=== PATIENT | female | born 1980 | race Caucasian/White ===

== ENCOUNTER 2020-05-02 11:42 | Emergency (ER) | payer OTHER ==
[~2020-05-02] VITALS: Ht 170.2 cm; Wt 54.4 kg
[~2020-05-02 11:42] MED LIST: CELEXA20 MG ORAL; IBUPROFEN600 MG ORAL
[2020-05-02] MEDS ORDERED: Tetanus/Diptheria/Pertussis IM ONE (12:00)
[2020-05-02] MEDS ORDERED: Acetaminophen 500mg (ES) tab ORAL ONE (12:00)
--- NOTE | 2020-05-02 12:00 | NUR ---
ED Nurse Note: Pt ambulated to ED from home due to laceration on L side of the head. Per pt she hit accidentally hit her head hard on the edge of a cabinet. Noted active bleeding (pressure gauze applied). denies LOC or dizziness. Pt is AOx4, calm and cooperative to care, VSS, on RA, afebrile on triage.
[2020-05-02 12:05] VITALS: BP 118/77
--- NOTE | 2020-05-02 13:00 | NUR ---
ED Nurse Note: Affected site wiped and gently cleaned by RN. non adhesive pad and kerlix wrapped on pt's forehead.
[2020-05-02] MEDS ORDERED: TYLENOL EXTRA500 MG ORAL (13:02)
[2020-05-02 13:15] VITALS: BP 120/78
--- NOTE | 2020-05-02 13:15 | NUR ---
ER DISCHARGE NOTE: Patient is cleared to be discharged per ERMD, pt is aox4, on room air, with stable vital signs. pt was given dc and prescription instructions, pt was able to verbalize understanding, pt id band removed. pt is able to ambulate with steady gait. pt took all belongings.
--- NOTE | 2020-05-03 08:04 | Emergency Room Report ---
History of Present Illness General Chief Complaint: Head Injury Source: Patient Present Illness HPI 39-year-old female presents the ED with laceration to scalp. States that today she hit her head against a wooden cabinet. There is a cut to her scalp. Bleeding noted. Pain is a 4 out of 10, dull, nonradiating. Denies LOC. Denies photophobia or blurry vision. Denies neck pain. No other aggravating relieving factors. Denies any other associated symptoms Allergies: Coded Allergies: No Known Allergies (Unverified , 03/04/18) COVID-19 Screening Contact w/high risk pt: No Experienced COVID-19 symptoms?: No COVID-19 Testing performed [employer]: No Patient History Past Medical History: none Past Surgical History: none Pertinent Family History: none Social History: Denies: smoking, alcohol use, drug use Now: No Immunizations: UTD Reviewed Nursing Documentation: PMH: Agreed; PSxH: Agreed Nursing Documentation-PMH Past Medical History: No Stated History Review of Systems All Other Systems: negative except mentioned in HPI Physical Exam Vital Signs Date Time Temp Pulse Resp B/P (MAP) Pulse Ox O2 Delivery O2 Flow Rate FiO2 05/02/20 11:49 98.8 92 20 118/77 (91) 94 Room Air Sp02 EP Interpretation: reviewed, normal General Appearance: no apparent distress, alert, GCS 15, non-toxic Head: normocephalic, other - 2 cm laceration to left temporal scalp. Eyes: bilateral eye normal inspection, bilateral eye PERRL ENT: hearing grossly normal, normal pharynx, no angioedema, normal voice Neck: full range of motion, supple/symm/no masses Respiratory: chest non-tender, lungs clear, normal breath sounds, speaking full sentences Cardiovascular #1: regular rate, rhythm, no edema Cardiovascular #2: 2+ carotid (R), 2+ carotid (L), 2+ radial (R), 2+ radial (L), 2+ dorsalis pedis (R), 2+ dorsalis pedis (L) Gastrointestinal: normal bowel sounds, non tender, soft, non-distended, no guarding, no rebound Rectal: deferred Genitourinary: normal inspection, no CVA tenderness Musculoskeletal: back normal, normal range of motion, gait/station normal, non- tender Neurologic: alert, motor strength/tone normal, oriented x3, sensory intact, responsive, speech normal Psychiatric: judgement/insight normal, memory normal, mood/affect normal, no suicidal/homicidal ideation Reflexes: 3+ bicep (R), 3+ bicep (L), 3+ tricep (R), 3+ tricep (L), 3+ knee (R), 3+ knee (L) Lymphatic: no adenopathy Procedures Laceration/Wound Repair Laceration/Wound Repair : Consent: Verbal Wound Location: head Wound Explored: clean Betadine Prep?: Yes Anesthesia: 1% Lidocaine Wound Debrided: minimal Wound Repaired With: francesca Layer Closure?: No Sterile Dressing Applied?: No Splint Applied?: No Sling Applied?: No Patient Tolerated: Well Complications: None Medical Decision Making Diagnostic Impression: Primary Impression: Scalp laceration Qualified Codes: S01.01XA - Laceration without foreign body of scalp, initial encounter ER Course Hospital Course 39-year-old female presents with scalp laceration hitting her head on a cabinet Clinical course Patient placed on stretcher. After initial history and physical I ordered tetanus shot. Wound irrigated. Anesthesia applied. Wound repaired with francesca. Patient tolerated without complication. Discussed findings with patient. Safe for discharge with close outpatient follow-up. Diagnosis -scalp laceration Stable and discharged to home with prescription for Tylenol. wound Care instr uctions given. Followup with PMD in 10 days for staple removal. Return to ED if any signs of infection develop Last Vital Signs Date Time Temp Pulse Resp B/P (MAP) Pulse Ox O2 Delivery O2 Flow Rate FiO2 05/02/20 13:15 98.8 74 19 120/78 98 Room Air Status: improved Disposition: HOME, SELF-CARE Condition: Stable Scripts Acetaminophen* (TYLENOL EXTRA STRENGTH*) 500 Mg Tablet 500 MG ORAL Q8H PRN for Prn Headache/Temp > 101, #30 TAB 0 Refills Prov: Herman Salas MD 05/02/20 Patient Instructions: Stitches, Francesca, or Adhesive Wound Closure, [id number] Additional Instructions: return to ED in 10 days for staple removal Herman Salas MD May 03, 2020 08:04
== END 2020-05-02 13:15 | disposition home or self-care (01) ==
LOC: EMR 12:25
DX: S01.01XA Laceration without foreign body of scalp, initial encounter (principal); Z23 Encounter for immunization; W22.8XXA Striking against or struck by other objects, initial encounter; Y92.9 Unspecified place or not applicable
CPT/HCPCS: 12001; 90471; 90715; Z7502; 99282